=== PATIENT | male | born 1970 | race African-American/Black ===

== ENCOUNTER 2021-04-08 17:11 | Inpatient (IN) | payer BC, SELFPAY ==
[~2021-04-08] VITALS: Ht 177.8 cm; Wt 94.3 kg
[2021-04-08 17:36] VITALS: BP_SYST 176
[2021-04-08] MEDS ORDERED: cloNIDine HCL 0.1 MG TABLET PO ONE (18:00)
[2021-04-08 18:44] LABS: BASOPHILS # (AUTO) 0.1 K/uL (0.0-0.2); BASOPHILS % (AUTO) 0.7 % (0.0-2.0); EOSINOPHILS # (AUTO) 0.2 K/uL (0.0-0.4); EOSINOPHILS % (AUTO) 2.5 % (0.0-4.0); HEMOGLOBIN 12.4 g/dL (14.0-18.0); LYMPHOCYTES # (AUTO) 0.8 K/uL (1.0-5.5); LYMPHOCYTES % (AUTO) 10.9 % (20.5-51.5); MEAN CORPUSCULAR HEMOGLOBIN 32 pg (27-31); MEAN CORPUSCULAR HGB CONC 34 % (32-36); MEAN CORPUSCULAR VOLUME 94 fL (79.0-98.0); MONOCYTES # (AUTO) 0.8 K/uL (0.0-1.0); MONOCYTES % (AUTO) 10.7 % (1.7-9.3); NEUTROPHILS # (AUTO) 5.7 K/uL (1.8-7.7); NEUTROPHILS % (AUTO) 75.2 % (40.0-70.0); PLATELET COUNT (AUTO) 127 K/uL (130-430); RED BLOOD CELL COUNT(AUTO) 3.94 MIL/uL (4.2-6.2); WHITE BLOOD COUNT (AUTO) 7.5 K/uL (4.8-10.8)
[2021-04-08 19:08] LABS: POTASSIUM 4.6 mmol/L (3.5-5.1)
[2021-04-08 19:09] LABS: CALCIUM 8.1 mg/dL (8.4-11.0); CREATININE 5.44 mg/dL (0.55-1.30)
[2021-04-08 19:12] LABS: ALBUMIN 3.3 g/dL (3.4-4.8); TOTAL BILIRUBIN 0.7 mg/dL (0.0-1.0)
[2021-04-08] MEDS ORDERED: NACL 0.9% 1,000 ML IV ONE (20:45)
[2021-04-08 21:44] LABS: BILIRUBIN,URINE NEGATIVE (NEGATIVE); CLARITY/URINE CLEAR (CLEAR); COLOR,URINE YELLOW (YELLOW); GLUCOSE,URINE NEGATIVE (NEGATIVE); KETONES,URINE NEGATIVE (NEGATIVE); LEUKOCYTE ESTERASE ,URINE NEGATIVE (NEGATIVE); NITRITE, URINE NEGATIVE (NEGATIVE); PH,URINE 5.5 (5.0-8.0); PROTEIN URINE 2+ (NEGATIVE); UROBILINOGEN,URINE 0.2 (0.2-1.0)
[2021-04-08 21:45] LABS: BLOOD, URINE TRACE (NEGATIVE)
[2021-04-08] MEDS ORDERED: ASPIRIN 325 MG TABLET PO ONE (21:45)
[2021-04-08] MEDS ORDERED: LABETALOL HCL 100 MG TABLET PO ONE (22:00)
[2021-04-08 22:04] LABS: BACTERIA,URINE FEW /HPF (None Seen); RBC,URINE 0-3 /HPF (0-3); WBC,URINE 0-3 /HPF (0-3)
[2021-04-08 22:05] LABS: COARSE GRANULAR CASTS,URINE 0-10 /LPF (None Seen); HYALINE CASTS, URINE 0-10 /LPF (None Seen)
[2021-04-08] MEDS ORDERED: ASPIRIN 325 MG TABLET ONE (22:08)
[2021-04-08] MEDS ORDERED: LABE300T3 PO (22:24)
[2021-04-08] MEDS ORDERED: VALS160T2 PO (22:24)
[2021-04-08] MEDS ORDERED: MONT10TA33 PO (22:24)
[2021-04-08] MEDS ORDERED: HYDR100T25 PO (22:25)
[2021-04-08] MEDS ORDERED: NOR10 PO (22:25)
[2021-04-08] MEDS ORDERED: MELATONIN 3 MG TABLET PO PRN (23:00)
[2021-04-08 23:15] VITALS: BP_SYST 140
[2021-04-08 23:18] VITALS: BP_SYST 140
[2021-04-08] MEDS: 0.45% NACL 1,000 ML IV SCH (23:38)
[2021-04-09 06:19] VITALS: BP_SYST 179
[2021-04-09] MEDS ORDERED: hydrALAZINE HCL 25 MG TABLET PO SCH ×2 (07:00→09:00)
[2021-04-09 07:15] LABS: BASOPHILS # (AUTO) 0.1 K/uL (0.0-0.2); BASOPHILS % (AUTO) 0.8 % (0.0-2.0); EOSINOPHILS # (AUTO) 0.3 K/uL (0.0-0.4); EOSINOPHILS % (AUTO) 4.3 % (0.0-4.0); HEMATOCRIT 33.8 % (36-54); HEMOGLOBIN 11.2 g/dL (14.0-18.0); LYMPHOCYTES % (AUTO) 15.1 % (20.5-51.5); MEAN CORPUSCULAR HEMOGLOBIN 31 pg (27-31); MEAN CORPUSCULAR HGB CONC 33 % (32-36); MEAN CORPUSCULAR VOLUME 94 fL (79.0-98.0); MONOCYTES # (AUTO) 0.6 K/uL (0.0-1.0); MONOCYTES % (AUTO) 9.6 % (1.7-9.3); NEUTROPHILS # (AUTO) 4.6 K/uL (1.8-7.7); NEUTROPHILS % (AUTO) 70.2 % (40.0-70.0); PLATELET COUNT (AUTO) 126 K/uL (130-430); RED BLOOD CELL COUNT(AUTO) 3.61 MIL/uL (4.2-6.2); RED CELL DISTRIBUTION WIDTH 15.1 % (9.0-15.0); WHITE BLOOD COUNT (AUTO) 6.5 K/uL (4.8-10.8)
[2021-04-09 07:37] LABS: ALBUMIN 2.8 g/dL (3.4-4.8); CALCIUM 7.6 mg/dL (8.4-11.0); CREATININE 4.94 mg/dL (0.55-1.30); THYROID STIMULATING HORMONE 1.65 uIu/mL (0.36-3.74); TOTAL BILIRUBIN 0.6 mg/dL (0.0-1.0)
[2021-04-09 08:00] VITALS: BP_SYST 175
[2021-04-09] MEDS: 0.45% NACL 1,000 ML IV SCH (09:02)
[2021-04-09] MEDS: LABETALOL HCL 100 MG TABLET PO SCH ×2 (09:04→21:23)
[2021-04-09] MEDS ORDERED: amLODIPine BESYLATE 10 MG TABLET PO ONE (10:00)
[2021-04-09 12:30] VITALS: BP_SYST 160
[2021-04-09] MEDS: hydrALAZINE HCL 25 MG TABLET PO SCH ×2 (13:18→21:24)
[2021-04-09 16:55] VITALS: BP_SYST 162
[2021-04-09] MEDS ORDERED: MONTELUKAST 10 MG TABLET PO SCH (18:00)
[2021-04-09] MEDS: cloNIDine HCL 0.1 MG TABLET PO PRN (18:54)
[2021-04-09] MEDS ORDERED: ACETAMINOPHEN 500 MG TABLET PO PRN (19:00)
[2021-04-09] MEDS ORDERED: ONDANSETRON HCL 4 MG/2 ML VIAL IVP PRN (19:15)
[2021-04-09 20:00] VITALS: BP_SYST 196
[2021-04-09 22:55] VITALS: BP_SYST 166
[2021-04-10 00:04] VITALS: BP_SYST 163
[2021-04-10] MEDS: hydrALAZINE HCL 25 MG TABLET PO SCH ×2 (05:24→13:16)
[2021-04-10 05:25] VITALS: BP_SYST 158
[2021-04-10 06:47] LABS: BASOPHILS # (AUTO) 0.1 K/uL (0.0-0.2); BASOPHILS % (AUTO) 0.7 % (0.0-2.0); EOSINOPHILS # (AUTO) 0.2 K/uL (0.0-0.4); HEMATOCRIT 34.2 % (36-54); HEMOGLOBIN 11.7 g/dL (14.0-18.0); LYMPHOCYTES # (AUTO) 0.9 K/uL (1.0-5.5); MEAN CORPUSCULAR HEMOGLOBIN 32 pg (27-31); MEAN CORPUSCULAR HGB CONC 34 % (32-36); MEAN CORPUSCULAR VOLUME 93 fL (79.0-98.0); MONOCYTES # (AUTO) 0.6 K/uL (0.0-1.0); MONOCYTES % (AUTO) 7.2 % (1.7-9.3); NEUTROPHILS # (AUTO) 6.6 K/uL (1.8-7.7); NEUTROPHILS % (AUTO) 79.1 % (40.0-70.0); PLATELET COUNT (AUTO) 130 K/uL (130-430); RED BLOOD CELL COUNT(AUTO) 3.67 MIL/uL (4.2-6.2); RED CELL DISTRIBUTION WIDTH 15.1 % (9.0-15.0); WHITE BLOOD COUNT (AUTO) 8.4 K/uL (4.8-10.8)
[2021-04-10 06:58] LABS: ALBUMIN 2.7 g/dL (3.4-4.8); CALCIUM 7.7 mg/dL (8.4-11.0); CREATININE 4.72 mg/dL (0.55-1.30); POTASSIUM 3.8 mmol/L (3.5-5.1); TOTAL BILIRUBIN 0.7 mg/dL (0.0-1.0)
[2021-04-10 08:00] VITALS: BP_SYST 162
[2021-04-10 08:06] LABS: HEPATITIS B SURFACE AG Negative (Negative); HEPATITIS C VIRUS AB <0.1 s/co ratio (0.0-0.9)
[2021-04-10] MEDS ORDERED: amLODIPine BESYLATE 10 MG TABLET PO SCH (09:00)
[2021-04-10] MEDS: LABETALOL HCL 100 MG TABLET PO SCH (09:33)
[2021-04-10 10:07] LABS: ANTI NUCLEAR AB WITH REFLEX Negative (Negative)
[2021-04-10] MEDS: cloNIDine HCL 0.1 MG TABLET PO PRN (11:26)
[2021-04-10 12:10] VITALS: BP_SYST 156
[2021-04-10 13:24] VITALS: BP_SYST 154
[2021-04-10 21:11] LABS: CREATININE 4.72 mg/dL (0.55-1.30)
[2021-04-10 22:54] LABS: CREATININE CLEARANCE,URINE 21.6 ml/min (80-120); CREATININE,URINE 67.2 MG/DL (30-125)
== END 2021-04-10 16:25 | disposition home or self-care (01) | DRG 683 ==
LOC: SED 17:11 → STU 21:49
PROVIDERS: ADMIT Internal Medicine; ATTEND Internal Medicine
DX: I12.9 Hypertensive chronic kidney disease with stage 1 through stage 4 chronic kidney disease, or unspecified chronic kidney disease (principal); N17.9 Acute kidney failure, unspecified; I24.8 Other forms of acute ischemic heart disease; Z20.822 Contact with and (suspected) exposure to COVID-19; N18.9 Chronic kidney disease, unspecified; F17.290 Nicotine dependence, other tobacco product, uncomplicated; E66.9 Obesity, unspecified; J44.9 Chronic obstructive pulmonary disease, unspecified; Z88.6 Allergy status to analgesic agent; Z79.899 Other long term (current) drug therapy; I25.2 Old myocardial infarction; Z68.29 Body mass index [BMI] 29.0-29.9, adult
CPT/HCPCS: 36415; 71045; 76770; 80053; 80061; 81000; 82384; 82575; 83880; 84156; 84244; 84443; 84484; 85025; 86038; 86256; 86480; 86706; 86707; 86803; 87086; 87340; 93005; 93306; 96360; 99291; 99292; G0378